=== PATIENT | male | born 1970 | race Asian ===

== ENCOUNTER 2018-05-21 08:32 | Day surgery (SDC) | payer OTHER ==
[~2018-05-21 08:32] MED LIST: CEFAZOLIN 1 GM INJ; DEXAMETHASONE 4 MG/ML 5 ML INJ; LIDOCAINE 2% (SDV) 5 ML INJ; METOCLOPRAMIDE 10 MG INJ; PROPOFOL 200 MG INJ
[2018-05-21 09:23] LABS: ADD MAN DIFF? NO
[2018-05-21 09:25] LABS: WHITE BLOOD COUNT 4.8 10^3/ul (4.8-10.8)
[2018-05-21 09:25] LABS: BASOPHILS % 0.4 % (0.0-2.0); EOSINOPHILS # 0.2 10^3/ul (0.0-0.5); EOSINOPHILS % 3.9 % (0.0-7.0); HEMATOCRIT 45.8 % (42.0-52.0); LYMPHOCYTES # 1.4 10^3/ul (0.8-2.9); LYMPHOCYTES % 28.7 % (15.0-51.0); MEAN CORPUSCULAR HEMOGLOBIN 31.3 pg (29.0-33.0); MEAN CORPUSCULAR HGB CONC 34.9 g/dl (32.0-37.0); MEAN CORPUSCULAR VOLUME 89.6 fl (82.0-101.0); MEAN PLATELET VOLUME 9.3 fl (7.4-10.4); MONOCYTE # 0.4 10^3/ul (0.3-0.9); MONOCYTES % 8.9 % (0.0-11.0); NEUTROPHIL # 2.8 10^3/ul (1.6-7.5); NEUTROPHILS % 57.9 % (39.0-77.0); PLATELET COUNT 222 10^3/UL (140-415); RED BLOOD COUNT 5.11 10^6/ul (4.70-6.10); RED CELL DISTRIBUTION WIDTH 11.7 % (11.5-14.5)
[2018-05-21] MEDS ORDERED: FENTAnyl 50 MCG/ML VIAL (09:29)
[2018-05-21 09:43] LABS: INR 0.91; PROTIME 12.4 Sec (11.9-14.9)
[2018-05-21 09:44] LABS: PARTIAL THROMBOPLASTIN TIME 29.3 Sec (23.0-35.0)
[2018-05-21 09:49] LABS: ALANINE AMINOTRANSFERASE 26 IU/L (13-69); ALBUMIN 4.6 g/dl (3.3-4.9); ALBUMIN/GLOBULIN RATIO 1.39; ALKALINE PHOSPHATASE 51 IU/L (42-121); ANION GAP 11 (5-13); ASPARTATE AMINO TRANSFERASE 22 IU/L (15-46); BILIRUBIN,INDIRECT 0.5 mg/dl (0-1.1); BILIRUBIN,TOTAL 0.5 mg/dl (0.2-1.3); BLOOD UREA NITROGEN 20 mg/dl (7-20); CALCIUM 9.3 mg/dl (8.4-10.2); CARBON DIOXIDE 26 mmol/L (21-31); CHLORIDE 105 mmol/L (97-110); Estimated GFR > 60 mL/min (>60); GLUCOSE 109 mg/dl (70-220); POTASSIUM 4.2 mmol/L (3.5-5.1); SODIUM 142 mmol/L (135-144); TOTAL PROTEIN 7.9 g/dl (6.1-8.1)
[2018-05-21] MEDS ORDERED: MIDAZOLAM 1 MG/ML 2 ML INJ (10:11)
[2018-05-21] MEDS ORDERED: ONDANSETRON 4 MG INJ (10:14)
[2018-05-21] MEDS ORDERED: SUGAMMADEX SODIUM 200 MG/2 ML VIAL IV (11:08)
[2018-05-21] MEDS ORDERED: ROPIVACAINE 0.5 % 30 ML VIAL (11:11)
[2018-05-21] MEDS ORDERED: BUPIVACAINE 0.5% (SDV) 30 ML INJ (11:13)
[2018-05-21] MEDS ORDERED: hydrALAzine 20 MG INJ (11:15)
[2018-05-21] MEDS ORDERED: LEVALBUTEROL (NEB) 1.25 MG/0.5 ML AMP HHN (12:00)
[2018-05-21] MEDS ORDERED: DIPHENHYDRAMINE 50 MG INJ IV (12:00)
[2018-05-21] MEDS ORDERED: IPRATROPIUM (NEB) 0.5 MG/2.5 ML AMP HHN (12:00)
[2018-05-21] MEDS ORDERED: LABETALOL HCL 20MG INJ IV (12:00)
[2018-05-21] MEDS ORDERED: hydrALAzine 20 MG INJ IV (12:00)
[2018-05-21] MEDS ORDERED: KETOROLAC 30 MG INJ IV (12:00)
[2018-05-21] MEDS ORDERED: HYDROmorphONE 1 MG/5 ML IV SYRINGE IV ×2 (12:00)
[2018-05-21] MEDS ORDERED: FENTAnyl 50 MCG/ML VIAL IV ×2 (12:00)
[2018-05-21] MEDS ORDERED: LIDOCAINE 1%/EPI (1:100,000) (MDV) 20 ML (12:56)
[2018-05-21] MEDS ORDERED: POLYMYXIN/BACITRACIN 1L IRRIG (13:08)
[2018-05-21] MEDS: MEPERIDINE 25 MG INJ IV (13:37)
[2018-05-21] MEDS: ONDANSETRON 4 MG INJ IV (13:39)
[2018-05-21] MEDS: HYDROmorphONE 1 MG/5 ML IV SYRINGE IV (13:42)
[2018-05-21] MEDS: HYDROCODONE/APAP (5/325) TAB PO (14:03)
== END 2018-05-21 15:00 | disposition home or self-care (01) ==
LOC: SDS 08:32
DX: K40.30 Unilateral inguinal hernia, with obstruction, without gangrene, not specified as recurrent (principal)
CPT/HCPCS: 49507; 80053; 85025; 85610; 85730